=== PATIENT | male | born 1965 | race Caucasian/White ===

== ENCOUNTER 2016-12-30 19:42 | Emergency (ER) | payer MEDICARE, MEDICAID ==
[~2016-12-30] VITALS: Ht 185.4 cm; Wt 88.5 kg
[~2016-12-30 19:42] MED LIST: ACET50TAOT PO; CIPR-249 PO; METR1TAB66 PO; NORC1TAB4 PO; OMEP20CA3 PO
[2016-12-30 21:52] LABS: ALBUMIN 4.3 GM/DL (3.2-5.2); ALBUMIN/GLOBULIN RATIO 1.05 (1.00-1.93); BILIRUBIN,DIRECT 0.2 MG/DL (0.0-0.2); BILIRUBIN,TOTAL 0.9 MG/DL (0.2-1.0); CALCIUM LEVEL 9.6 MG/DL (8.5-10.1); CREATININE FOR GFR 1.5 MG/DL (0.70-1.30); GLOMERULAR FILTRATION RATE 52.7 (>56); POTASSIUM SERUM 3.7 MEQ/L (3.5-5.1); TOTAL PROTEIN 8.4 GM/DL (6.4-8.2)
[2016-12-30 22:00] LABS: ADD MANUAL DIFFER YES; MEAN CORPUSCULAR HEMOGLOBIN 33.6 pg (27.0-33.0); MEAN CORPUSCULAR HGB CONC 35.6 g/dl (32.0-36.5); MEAN CORPUSCULAR VOLUME 94.5 fl (80.0-96.0); PLATELET COUNT, AUTOMATED 183 k/mm3 (150-450); RED CELL DISTRIBUTION WIDTH 13.5 % (11.5-14.5); WHITE BLOOD COUNT 13.9 K/mm3 (4.0-10.0)
[2016-12-30] MEDS ORDERED: ONDANSETRON 4MG/2ML VIAL (J2405) IV ONE (22:30)
[2016-12-30] MEDS ORDERED: NS 1,000 ML IV ONE (22:30)
[2016-12-30] MEDS ORDERED: PANTOPRAZOLE 40MG INJ (PROTONIX) (C9113) IV ONE (22:30)
[2016-12-30] MEDS ORDERED: KETOROLAC 30 MG/ML VIAL (J1885) IV ONE (22:30)
[2016-12-30] MEDS ORDERED: LABETALOL HCL 100 MG/20 ML VIAL IV STA (22:34)
[2016-12-30] MEDS ORDERED: LABETALOL 100 MG TAB PO ONE (22:45)
[2016-12-30 23:08] VITALS: BP 160/78
[2016-12-30 23:13] VITALS: BP 148/85
[2016-12-30] MEDS ORDERED: ZOFR4TAB3 PO (23:40)
--- NOTE | 2016-12-31 08:01 | REP ---
Acute abdominal series three views including PA chest and supine upright abdomen: PA chest: Comparison is 06/29/2007. Lung argueta are clear. Cardiac size is normal. The j luis, mediastinum, and bony thorax unremarkable. There is no free subdiaphragmatic air. Impression: Negative PA chest. No interval change. Abdomen, supine and upright views: Comparison is a CT abdomen pelvis dated 08/14/2015. The bowel gas pattern is normal. There is a large ovoid calcification in the left upper quadrant. On the comparison CT. This is a large calcification arising from the posterior portion of the spleen, possibly a large calcified hematoma. Appears unchanged. There are pelvic calcifications, unchanged, likely phleboliths. The skeletal structures and soft tissues are otherwise unremarkable. Impression: Normal bowel gas pattern. Large left upper lobe calcification, likely an old calcified splenic hematoma. Signed by Lobo Salter MD 12/31/2016 07:53 A
== END 2016-12-31 00:13 | disposition home or self-care (01) ==
LOC: M ED 19:42
DX: K52.9 Noninfective gastroenteritis and colitis, unspecified (principal); E78.5 Hyperlipidemia, unspecified; Z87.891 Personal history of nicotine dependence; Z91.09 Other allergy status, other than to drugs and biological substances; Z79.899 Other long term (current) drug therapy
CPT/HCPCS: 74022; 80048; 80076; 81001; 83690; 85025; 96374; 96375; 99283; C9113; J1885; J2405

== ENCOUNTER 2024-01-16 18:54 | Emergency (ER) | payer MEDICARE, BC ==
[~2024-01-16] VITALS: Ht 185.4 cm; Wt 80.5 kg
[2024-01-16 18:54] VITALS: BP 144/79; TEMP 97.5; O2SAT 100
[~2024-01-16 18:54] MED LIST changes: +ACET500T15 PO; -ACET50TAOT PO; +METR-265 PO; -METR1TAB66 PO; -NORC1TAB4 PO; +NORC1TAB7 PO; +OMEP1CAP73 PO; -OMEP20CA3 PO; +ZOFR4TAB14 PO
[2024-01-16 19:47] LABS: BASO % 0.4 % (0.0-1.0); EOS # 0.1 10^3/uL (0.0-0.5); EOS % 0.7 % (0.0-3.0); HEMATOCRIT 43.7 % (42.0-52.0); HEMOGLOBIN 15.6 g/dl (13.5-17.5); MEAN CORPUSCULAR HEMOGLOBIN 31.5 pg (27.0-33.0); MEAN CORPUSCULAR HGB CONC 35.7 g/dl (32.0-36.5); MEAN CORPUSCULAR VOLUME 88.3 fl (80.0-96.0); MONO # 0.6 10^3/uL (0.0-0.8); MONO % 7.3 % (2.0-8.0); NEUTROPHILS # 5.6 10^3/uL (1.5-8.5); NEUTROPHILS % 67.2 % (36.0-66.0); RED BLOOD COUNT 4.95 10^6/uL (4.30-6.10); WHITE BLOOD COUNT 8.4 10^3/uL (4.0-10.0)
[2024-01-16 20:20] LABS: LIPASE 31 U/L (12-53)
[2024-01-16 20:23] LABS: ALBUMIN 4.3 G/DL (3.2-5.2); ALKALINE PHOSPHATASE 69 U/L (46-116); ALT/SGPT 27 U/L (7.0-40); AST/SGOT 36 U/L (<34); BILIRUBIN,DIRECT 0.5 MG/DL (<0.4); BILIRUBIN,TOTAL 1.6 MG/DL (0.3-1.2); BLOOD UREA NITROGEN 21 MG/DL (9-23); CALCIUM LEVEL 9.4 MG/DL (8.5-10.1); CARBON DIOXIDE LEVEL 21 MMOL/L (20-31); CHLORIDE LEVEL 106 MMOL/L (98-107); CREATININE FOR GFR 1.22 MG/DL (0.70-1.30); GLOMERULAR FILTRATION RATE > 60.0 (>56); GLUCOSE, FASTING 100 MG/DL (60-100); PLATELET COUNT, AUTOMATED 94 10^3/uL (150-450); POTASSIUM SERUM 3.6 MMOL/L (3.5-5.1); SODIUM LEVEL 136 MMOL/L (136-145); TOTAL PROTEIN 7.9 G/DL (5.7-8.2)
== END 2024-01-16 21:51 | disposition left against medical advice (07) ==
LOC: M ED 18:54
DX: Z53.21 Procedure and treatment not carried out due to patient leaving prior to being seen by health care provider (principal)

== ENCOUNTER 2024-01-17 20:04 | Emergency (ER) | payer MEDICARE, BC ==
[~2024-01-17] VITALS: Ht 185.4 cm; Wt 80.5 kg
[2024-01-17 21:10] LABS: BASO % 0.3 % (0.0-1.0); EOS # 0.1 10^3/uL (0.0-0.5); EOS % 0.8 % (0.0-3.0); HEMATOCRIT 41.2 % (42.0-52.0); HEMOGLOBIN 14.7 g/dl (13.5-17.5); LYMPH # 1.5 10^3/uL (1.5-5.0); LYMPH % 25.1 % (24.0-44.0); MEAN CORPUSCULAR HEMOGLOBIN 31.6 pg (27.0-33.0); MEAN CORPUSCULAR HGB CONC 35.7 g/dl (32.0-36.5); MEAN CORPUSCULAR VOLUME 88.6 fl (80.0-96.0); MONO # 0.4 10^3/uL (0.0-0.8); MONO % 6.3 % (2.0-8.0); RED BLOOD COUNT 4.65 10^6/uL (4.30-6.10)
[2024-01-17 21:31] LABS: ALKALINE PHOSPHATASE 64 U/L (46-116); ALT/SGPT 29 U/L (7.0-40); AST/SGOT 28 U/L (<34); BILIRUBIN,TOTAL 1.9 MG/DL (0.3-1.2); BLOOD UREA NITROGEN 18 MG/DL (9-23); CARBON DIOXIDE LEVEL 21 MMOL/L (20-31); CHLORIDE LEVEL 105 MMOL/L (98-107); CREATININE FOR GFR 1.17 MG/DL (0.70-1.30); GLOMERULAR FILTRATION RATE > 60.0 (>56); GLUCOSE, FASTING 108 MG/DL (60-100); MAGNESIUM LEVEL 1.8 MG/DL (1.8-2.4); PLATELET COUNT, AUTOMATED 87 10^3/uL (150-450); POTASSIUM SERUM 3.1 MMOL/L (3.5-5.1); SODIUM LEVEL 136 MMOL/L (136-145); TOTAL PROTEIN 7.3 G/DL (5.7-8.2)
[2024-01-17 21:51] LABS: CK-MB VALUE MASS < 1.0 NG/ML (<3.6)
[2024-01-17 21:52] LABS: CPK CREATINE PHOSPHOKINASE 108 U/L (46-171); MB/CK RELATIVE INDEX 0.92 (< OR =4)
[2024-01-17] MEDS: MAG SULF 1GM/100ML (MAG RUN) 1 GM in IV 1 EA IV ONE (22:05)
[2024-01-17] MEDS: POTASSIUM CHLORIDE 10% LIQ 20MEQ/15ML UDC PO ONE (23:54)
[2024-01-18 00:58] VITALS: BP 170/88; TEMP 97.4; O2SAT 100
[2024-01-21 17:52] LABS: LYME TOTAL ANTIBODY CIA <= 0.90 Index (<=0.90)
== END 2024-01-18 02:00 | disposition home or self-care (01) ==
LOC: M ED 20:04 → EDBD 20:04 → M ED 01-18 02:00
DX: E83.42 Hypomagnesemia (principal); E87.6 Hypokalemia; R53.1 Weakness; K21.9 Gastro-esophageal reflux disease without esophagitis; Z79.899 Other long term (current) drug therapy; Z91.89 Other specified personal risk factors, not elsewhere classified
CPT/HCPCS: 71046; 80053; 82550; 82553; 83735; 84484; 85025; 85049; 85055; 86618; 87486; 87581; 87633; 87798; 93005; 96374; 99284; J3475

== ENCOUNTER 2024-08-10 03:34 | Emergency (ER) | payer BC, MEDICARE, MEDICAID ==
[~2024-08-10] VITALS: Ht 185.4 cm; Wt 81.6 kg
[2024-08-10] MEDS: KETOROLAC 30 MG/ML 1ML VIAL IV ONE (07:54)
[2024-08-10] MEDS: ONDANSETRON 4MG 2ML VIAL IV ONE (07:54)
[2024-08-10] MEDS: NS (Normal Saline) 0.9% 1,000 ML IV ONE (07:55)
[2024-08-10 07:56] LABS: BASO % 0.1 % (0.0-1.0); EOS % 0.1 % (0.0-3.0); HEMATOCRIT 46.4 % (42.0-52.0); HEMOGLOBIN 16.8 g/dl (13.5-17.5); LYMPH # 1.1 10^3/uL (1.5-5.0); LYMPH % 6.9 % (24.0-44.0); MEAN CORPUSCULAR HEMOGLOBIN 31.3 pg (27.0-33.0); MEAN CORPUSCULAR HGB CONC 36.2 g/dl (32.0-36.5); MEAN CORPUSCULAR VOLUME 86.6 fl (80.0-96.0); MONO # 1.3 10^3/uL (0.0-0.8); MONO % 8.1 % (2.0-8.0); NEUTROPHILS # 13.7 10^3/uL (1.5-8.5); NEUTROPHILS % 84.1 % (36.0-66.0); RED BLOOD COUNT 5.36 10^6/uL (4.30-6.10); WHITE BLOOD COUNT 16.3 10^3/uL (4.0-10.0)
[2024-08-10 07:58] LABS: PLATELET COUNT, AUTOMATED 98 10^3/uL (150-450)
[2024-08-10 08:20] LABS: LIPASE 25 U/L (12-53)
[2024-08-10 08:21] LABS: C REACTIVE PROTEIN QUANTITATIV < 0.50 MG/DL (<1.0)
[2024-08-10 08:22] LABS: ALBUMIN 4.8 G/DL (3.2-5.2); ALKALINE PHOSPHATASE 69 U/L (40-129); ALT/SGPT 25 U/L (7.0-40); AST/SGOT 32 U/L (<34); BILIRUBIN,DIRECT 0.5 MG/DL (<0.4); BILIRUBIN,TOTAL 1.6 MG/DL (0.3-1.2); BLOOD UREA NITROGEN 22 MG/DL (9-23); CALCIUM LEVEL 10.1 MG/DL (8.5-10.1); CARBON DIOXIDE LEVEL 24 MMOL/L (20-31); CHLORIDE LEVEL 97 MMOL/L (98-107); CREATININE FOR GFR 0.99 MG/DL (0.70-1.30); GLOMERULAR FILTRATION RATE > 60.0 (>56); GLUCOSE, FASTING 140 MG/DL (60-100); POTASSIUM SERUM 3.4 MMOL/L (3.5-5.1); SODIUM LEVEL 135 MMOL/L (136-145); TOTAL PROTEIN 8.6 G/DL (5.7-8.2)
[2024-08-10] MEDS ORDERED: ISOVUE-370 76% 100ML VIAL As Ordered ONE (08:45)
[2024-08-10 09:49] VITALS: BP 160/96; TEMP 99.3; O2SAT 98
[2024-08-10] MEDS: METOCLOPRAMIDE INJ 10MG/2ML VIAL IV ONE (11:23)
[2024-08-10] MEDS ORDERED: HOME MED LIST COMPLETE! XX SCH (11:50)
[2024-08-10] MEDS: METOCLOPRAMIDE INJ 10MG/2ML VIAL IM ONE (11:53)
[2024-08-10] MEDS ORDERED: REGL10TA6 PO (12:44)
[2024-08-10] MEDS ORDERED: ONDA-282 PO (12:44)
[2024-08-10] MEDS: OMEPRAZOLE 20MG CAP PO ONE (13:08)
== END 2024-08-10 13:17 | disposition home or self-care (01) ==
LOC: M ED 03:34
DX: R10.12 Left upper quadrant pain (principal); R10.32 Left lower quadrant pain; K57.92 Diverticulitis of intestine, part unspecified, without perforation or abscess without bleeding; F12.10 Cannabis abuse, uncomplicated; R16.1 Splenomegaly, not elsewhere classified; Z79.899 Other long term (current) drug therapy; Z91.89 Other specified personal risk factors, not elsewhere classified
CPT/HCPCS: 74177; 80048; 80076; 83605; 83690; 85025; 85049; 85055; 86140; 96361; 96372; 96374; 96375; 99284; J1885; J2405; J2765; Q9967